=== PATIENT | female | born 1960 | race Caucasian/White ===

== ENCOUNTER 2024-03-19 11:14 | Day surgery (SDC) | payer MEDICARE, OTHER ==
[~2024-03-19] VITALS: Ht 165.1 cm; Wt 42.7 kg
[2024-03-19] MEDS ORDERED: THERTAB52 PO (12:00)
[2024-03-19] MEDS ORDERED: KPHOS50TA PO (12:00)
[2024-03-19] MEDS ORDERED: THYR15TA PO (12:00)
[2024-03-19] MEDS ORDERED: propofoL 200 MG/20 ML VIAL As Ordered ONE (12:29)
[2024-03-19] MEDS ORDERED: fentaNYL 100 MCG/2 ML INJECTION As Ordered ONE (12:29)
[2024-03-19] MEDS ORDERED: LIDOCAINE 2% 100MG/5ML SDV (FOR ANES.) As Ordered ONE (12:29)
[2024-03-19] MEDS: ceFAZolin SOD 1 GM in D5W MINI-BAG PLUS 50 ML IV ONE (13:00)
[2024-03-19] MEDS ORDERED: ONDANSETRON 4MG 2ML VIAL As Ordered ONE (13:18)
[2024-03-19] MEDS ORDERED: KETOROLAC 60MG 2ML VIAL As Ordered ONE (13:18)
[2024-03-19] MEDS ORDERED: HYDROMORPHONE HCL 0.5 MG/ 0.5 ML SYRINGE IV PRN (13:40)
[2024-03-19] MEDS ORDERED: ONDANSETRON 4MG 2ML VIAL IV PRN (13:40)
[2024-03-19] MEDS ORDERED: oxyCODONE 5MG TAB PO PRN (13:40)
[2024-03-19] MEDS ORDERED: LR 1,000 ML IV SCH (13:40)
[2024-03-19] MEDS ORDERED: fentaNYL 100 MCG/2 ML INJECTION IV PRN (13:40)
[2024-03-19 14:30] VITALS: BP 132/73; TEMP 98.1; O2SAT 99
== END 2024-03-19 15:02 | disposition home or self-care (01) ==
LOC: M SDC 11:14
PROVIDERS: ATTEND Surgery
DX: C44.729 Squamous cell carcinoma of skin of left lower limb, including hip (principal); E03.9 Hypothyroidism, unspecified; Z79.890 Hormone replacement therapy
CPT/HCPCS: 11606; 12034; 88307; J0665; J0690; J1100; J1885; J2405; J3010

== ENCOUNTER → 2024-04-16 | Outpatient (CLI) | payer MEDICARE, OTHER ==
[~2024-04-16] MED LIST: KPHOS50TA PO; THERTAB52 PO; THYR15TA PO
== END ==
LOC: M RAD 11:46
PROVIDERS: ATTEND Physician Assistant
DX: M79.605 Pain in left leg (principal)